=== PATIENT | female | born 1950 | race Caucasian/White ===

== ENCOUNTER 2023-11-30 11:13 | Outpatient (CLI) | payer MEDICARE, SELFPAY ==
[2023-11-30 11:56] LABS: Hematocrit 45.7 % (37.0-47.0); Hemoglobin 15.1 g/dL (12.0-15.0); Mean Corpuscular Hemoglobin 30.1 pg (26-34); Mean Platelet Volume 9.6 fl (7.4-10.4); Platelet Count Result 245 k/mm3 (150-375); Red Blood Count 5.02 M/mm3 (4.2-5.4); Red Cell Distribution Width 13.1 % (11.5-14.5); White Blood Count 6.2 K/mm3 (4.5-10.0)
[2023-11-30 12:07] LABS: INR 0.9; Prothrombin Time 12.5 Seconds (11.1-14.7)
[2023-11-30 12:08] LABS: Alanine Aminotransferase 52 U/L (6-35); Albumin Level 4.7 g/dL (3.5-5.1); Alkaline Phosphatase 90 U/L (38-126); Anion Gap 6 mmol/L (4-12); Aspartate Amino Transferase 49 U/L (14-36); Bilirubin Indirect 2.6 mg/dL (0-1.1); Blood Urea Nitrogen 15 mg/dL (7-17); Carbon Dioxide 25 mmol/L (22-30); Chloride 107 mmol/L (98-107); Estimated Glomerular Filt Rate > 60; Glucose 92 mg/dL (65-110); Sodium 138 mmol/L (137-145)
[2023-11-30 12:31] LABS: Iron 80 ug/dL (37-170)
[2023-11-30 12:40] LABS: Percent Iron Saturation 21 % (20-50)
[2023-12-01 14:32] LABS: Alpha-1-Antitrypsin, QN 152 mg/dL (83-199); Ceruloplasmin 26 mg/dL (14-48)
[2023-12-05 07:48] LABS: Alpha Fetoprotein Tumor Marker 3.9 ng/mL
[2023-12-05 12:53] LABS: Anti Nuclear Antibody Titer 1:40 titer
[2023-12-06 13:03] LABS: Actin Antibody (IgG) <20 U (<20); LKM 1 Antibody <=20.0 U (<=20.0)
[2023-12-13 08:39] LABS: Mitochondrial (M2) Ab (IgG) <20.0 U
[2023-12-20 12:23] LABS: ALT 36 U/L (6-29); Alpha-2-Macroglobulin 267 mg/dL (106-279); Apolipoprotein A1 256 mg/dL (101-198); GGT 21 U/L (3-65); Haptoglobin 81 mg/dL (43-212); Total Bilirubin 2.1 mg/dL (0.2-1.2)
== END 2023-11-30 11:14 | disposition home or self-care (01) ==
LOC: ANHLAB 11:20
PROVIDERS: PCP Internal Medicine; Visit Provider Nurse Practitioner
DX: R74.8 Abnormal levels of other serum enzymes (principal); E80.6 Other disorders of bilirubin metabolism; K74.60 Unspecified cirrhosis of liver; K76.0 Fatty (change of) liver, not elsewhere classified
CPT/HCPCS: 36415; 80053; 81596; 82103; 82105; 82248; 82390; 82728; 83520; 83540; 83550; 85027; 85610; 86038; 86039; 86364; 86376

== ENCOUNTER 2024-02-20 09:58 | Outpatient (CLI) | payer MEDICARE, SELFPAY ==
--- NOTE | 2024-02-20 11:30 | NEURO_ITS ---
Impression: # Non-diabetic, arthritic but no Rheumatoid, complains of pain and numbness of hand. # Right Carpal Tunnel Syndrome. # No ulnar neuropathy. # Normal needle/EMG exam. # Clinical correlation recommended. Nerve Conduction Studies Anti Sensory Summary Table Stim Site NR Peak (ms) P-T Amp (?V) Site1 Site2 Delta-P (ms) Dist (cm) Skyler (m/s) Right Median Anti Sensory (2-3nd Digit) Wrist 4.5 46.0 Wrist 2-3nd Digit 4.5 14.0 31 Wrist 4.6 17.6 Wrist 2-3nd Digit 4.5 14.0 31 Right Radial Anti Sensory (Base 1st Digit) Wrist 2.2 24.8 Wrist Base 1st Digit 2.2 0.0 Right Ulnar Anti Sensory (5th Digit) Wrist 2.3 15.2 Wrist 5th Digit 2.3 14.0 61 Motor Summary Table Stim Site NR Onset (ms) O-P Amp (mV) Site1 Site2 Delta-0 (ms) Dist (cm) Skyler (m/s) Right Median Motor (Abd Poll Brev) Wrist 3.4 2.3 Elbow Wrist 5.2 26.0 50 Elbow 8.6 2.2 Right Ulnar Motor (Abd Dig Minimi) Wrist 2.2 5.6 A Elbow Wrist 4.9 28.0 57 A Elbow 7.1 4.2 F Wave Studies NR F-Lat (ms) L-R F-Lat (ms) Right Median (Mrkrs) (Abd Poll Brev) 29.07 Right Ulnar (Mrkrs) (Abd Dig Min) 28.20 EMG Side Muscle Nerve Root Ins Act Fibs Amp Dur Recrt Comment Right 1stDorInt Ulnar C8-T1 Nml Nml Nml Nml Nml Right Ext Indicis Radial (Post Int) C7-8 Nml Nml Nml Nml Nml Right Ext Digitorum Radial (Post Int) C7-8 Nml Nml Nml Nml Nml Right BrachioRad Radial C5-6 Nml Nml Nml Nml Nml Right PronatorTeres Median C6-7 Nml Nml Nml Nml Nml Right Abd Poll Brev Median C8-T1 Nml Nml Nml Nml Nml Right ABD Dig Min Ulnar C8-T1 Nml Nml Nml Nml Nml Right Biceps Musculocut C5-6 Nml Nml Nml Nml Nml Right Triceps Radial C6-7-8 Nml Nml Nml Nml Nml Right Deltoid Axillary C5-6 Nml Nml Nml Nml Nml MTDD
== END 2024-02-20 09:59 | disposition home or self-care (01) ==
LOC: ANHNEURO 10:00
PROVIDERS: PCP Internal Medicine; Visit Provider Internal Medicine
DX: G56.01 Carpal tunnel syndrome, right upper limb (principal)
CPT/HCPCS: 95886; 95909

== ENCOUNTER 2024-05-28 11:17 | Outpatient (CLI) | payer MEDICARE, SELFPAY ==
[2024-05-28 11:42] LABS: Hematocrit 44.4 % (37.0-47.0); Mean Corpuscular HGB Conc 33.8 g/dl (32-36); Mean Corpuscular Hemoglobin 31.1 pg (26-34); Mean Corpuscular Volume 92.1 fl (80-100); Platelet Count Result 271 k/mm3 (150-375); Red Blood Count 4.82 M/mm3 (4.2-5.4); Red Cell Distribution Width 13.2 % (11.5-14.5); White Blood Count 5.6 K/mm3 (4.5-10.0)
[2024-05-28 11:57] LABS: Alanine Aminotransferase 48 U/L (6-35); Albumin Level 4.3 g/dL (3.5-5.1); Alkaline Phosphatase 80 U/L (38-126); Anion Gap 3 mmol/L (4-12); Aspartate Amino Transferase 51 U/L (14-36); Bilirubin Indirect 2.8 mg/dL (0-1.1); Bilirubin,Total 3.1 mg/dL (0.2-1.3); Blood Urea Nitrogen 13 mg/dL (7-17); Calcium 9.3 mg/dL (8.4-10.2); Carbon Dioxide 27 mmol/L (22-30); Chloride 106 mmol/L (98-107); Estimated Glomerular Filt Rate > 60; Glucose 91 mg/dL (65-110); Potassium 4.6 mmol/L (3.4-5.0); Sodium 136 mmol/L (137-145)
== END 2024-05-28 11:18 | disposition home or self-care (01) ==
PROVIDERS: PCP Internal Medicine; Visit Provider Nurse Practitioner
DX: R74.8 Abnormal levels of other serum enzymes (principal); E80.6 Other disorders of bilirubin metabolism
CPT/HCPCS: 36415; 80048; 80076; 85027

== ENCOUNTER 2024-11-28 07:48 | Day surgery (SDC) | payer MEDICARE, SELFPAY ==
--- NOTE | 2024-11-28 06:53 | P.HP_ITS ---
History of Present Illness History of Present Illness Chief complaint: Right Carpal Tunnel Syndrome Narrative: Patient seen and examined in pre-operative holding area. No interval change in medical history or symptoms. Patient recalls previous discussion of benefits and alternatives to procedure. Continues to desire to proceed with right endoscopic possible open carpal tunnel release . Reviewed procedure, post-op expectations and risks including but not limited to bleeding, infection, injury to tendon/ner ve/vessel, decreased hand function, stiffness, RSD, no change or worsening of symptoms. I discussed the possible use of assistants and their participation in the case. Patient stated understanding and signed the consent form wishing to proceed. Review of Systems Review of Systems: All systems reviewed & are unremarkable except as noted in HPI and below PMFSH Past Medical History Medical History (Updated 11/28/24 @ 08:43 by Grzegorz Monreal MD) Overweight (BMI 25.0-29.9) HLD (hyperlipidemia) Social History Social History Smoking status: Never smoker Second hand tobacco smoke exposure: No Alcohol intake: current Substance use: never Substance use type: does not use Meds Home Medications and Allergies Home Medications Medication Instructions Recorded Confirmed Type aspirin 81 mg tablet,delayed 81 mg PO DAILY 11/30/23 11/28/24 History release (Adult Low Dose Aspirin) atorvastatin 80 mg tablet 80 mg PO DAILY 11/30/23 11/28/24 History ezetimibe 10 mg-rosuvastatin 10 mg 1 tablet PO DAILY 11/30/23 11/28/24 History tablet glucosamine-chondroitin 250 mg-200 2 tablet PO ONCE 11/30/23 11/28/24 History mg tablet (Osteo Bi-Flex) multivitamin (Daily Multi-Vitamin 1 tablet PO DAILY 11/30/23 11/28/24 History tablet) omega 2-xqj-xkk-fish oil 60 mg-90 1 cap PO DAILY 11/30/23 11/28/24 History mg-500 mg capsule (Fish Oil) tramadol 50 mg tablet 50 mg PO Q6H PRN pain #12 tabs 11/28/24 Rx Allergies Allergy/AdvReac Type Severity Reaction Status Date / Time No Known Allergies Allergy Unknown Verified 11/28/24 08:16 Exam Narrative: unchanged Assessment and Plan Assessment and plan (1) Carpal tunnel syndrome of right wrist: Code(s): G56.01 - Carpal tunnel syndrome, right upper limb Status: Acute Assessment and Plan: cont as above
--- NOTE | 2024-11-28 06:54 | W.PM.PROC2 ---
Procedure Note - Detailed Date of Procedure 11/28/24 Pre-op Diagnosis Right Carpal Tunnel Syndrome Post-op Diagnosis Same Procedure Performed right ectr Surgeon Erik Dean MD Section Crews Activities Clerk deidre boykin pa-c Anesthesia MAC Description of Procedure INFORMED CONSENT: The patient was seen and examined and marked in the pre-op area. The patient signed the consent form. PROCEDURE IN DETAIL:The patient taken back to OR on the stretcher in supine position. Time out performed with anesthesia, surgeon and staff agreeing on patient's name site and surgery to be performed SCDs were placed on the lower extremities and inflated. A tourniquet was placed on {right} upper extremity and antibiotics given IV After anesthesia administered sedation I injected {5}cc 1%lido with epi and 0.5% marcaine plain at the operative site The {right upper extremity} was prepped and draped in sterile fashion the {right upper extremity} was exsanguinated with Esmarch bandage and tourniquet inflated to 250mmHg I made a transverse incision in the {right} volar distal wrist crease through skin and dermis with 15 blade scalpel. Littler scissors spread down to antebrachial fascia. A small incision was made in antebrachial fascia allowing access to Carpal tunnel. I proceeded with sequential dilation staying in line with the ring finger and hugging the hook of the hamate. I then used the synovial elevator to free any adhesions from the underside of the transverse carpal ligament. Next I was able to insert the Microaire endoscopic carpal tunnel device with direct visualization of the transverse fibers on the monitor and proceeded with complete segmental retrograde release of the ligament in its entirety. I irrigated with normal saline and closed with 4-0 monocryl for dermis and subcuticular closure. A dressing of Dermabond, 4x4, clark, and a volar splint was applied for patient safety, security, and comfort and secured with an carmina bandage after the tourniquet was let down noting the hand was warm and well perfused. The patient was then awaken from anesthesia and transferred to the recovery room in stable condition. Complications - none EBL- 0cc Disposition - home in stable condition deidre boykin pa-c was essential for positioning, retraction, closure and dressing placement [facility] Billing Surgery - Charge Forward: Surgery Billing ([id number] same for deidre adding )
--- OUTSIDE RECORDS SUMMARY | 2024-11-28 08:05 | XMS_ITS | Data Portability ---
Author Organization [facility] [place] Address [address] [place] [address] Assessment Encounter Date Assessment Date Assessment LastModified by Organization Details LastModified Time 03/11/2020 03/11/2020 Annual gynecological exam performed. Patient will come back in a year unless there are new symptoms. [email or web address] Not available 03/11/2020 09:41:44 Plan of Treatment Reminders Order Date Submit Date Provider Last Modified By Organization Details Last Modified Time Details Appointments None record ed. Lab None record ed. Referral None record ed. Procedures None record ed. Surgeries None record ed. Imaging None record ed. Medication Orders None record ed. Patient TargetsNo targets recorded. Patient Instructions Encounter Date Encounter Id Patient Instructions Last Modified By Organization Details Last Modified Time 03/11/2020 [id number] [email or web address] Not available 10:05:02 Reason for Referral None Reported. Results Created Date Observation Date Name Description Value Unit Range Abnormal Flag Note LastModifiedBy Organization Detail LastModifiedTime 03/24/2003/24/2020 MAMMO , scree darell, bilat eral No observ ation record ed. [facility] (Imaging) [address] [place], [address], 04/01/2020 10:30:23 03/30/20 20 03/24/2020 MAMMO , scree darell, bilat eral No observ ation record ed. [facility] [address] [place], [address], 04/01/2020 10:29:48 Result Notes None recorded. Problems Name Problem SNOMED Code Status Onset Date Resolution Date Notes Provider Name and Address Organization Details Recorded Time Atypical squamous cells of undetermi shabbir significa nce on cervical Papanicol aou smear 593154624 Active 2012 Papanicola ou smear of cervix with atypical squamous cells of undetermin ed significan ce (ASC-US);R ecorded Elsewhere: No Locatio n: [facility] rce: EHR Chroni c: N Practice ID: 0001 Billa ble Time: 10:00:00 AM Not Available [facility] 0 21:46:18 Screening for malignant neoplasm of cervix Active 2011 Screening for malignant neoplasms of the cervix;Rec orded Elsewhere: No Locatio n: [facility] rce: EHR Chroni c: N Practice ID: 0001 Billa ble Time: 03:00:00 PM Not Available [facility] 0 21:46:18 Screening for malignant neoplasm of rectum Active 2016 Encounter for screening for malignant neoplasm of rectum;Pra ctice ID: 0001 Not Available [facility] 0 21:46:[address] Concept Active 2016 Encntr for director of safety and security exam (general) (routine) w/o abn findings;P ractice ID: 0001 Not Available [facility] 0 21:46:[address] Concept Active 2016 Encntr for general adult medical exam w/o abnormal findings;P ractice ID: 0001 Not Available [facility] 0 21:46:18 Adult health examinati on Active 2014 Routine general medical examinatio n at a health care facility;P ractice ID: 0001 Not Available [facility] 0 21:46:18 Specializ ed medical examinati on Active 2013 Routine gynecologi ivett examinatio n;Practice ID: 0001 Not Available [facility] 0 21:46:19 Microscop ic hematuria 465845008 Active 2012 MICROSCOPI C HEMATURIA; Recorded Elsewhere: No Locatio n: [facility] rce: EHR Chroni c: N Practice ID: 0001 Billa ble Time: 10:00:00 AM Not Available [facility] 0 21:46:19 Menopausa l symptom 27271277 Active 2014 Menopausal symptoms;R ecorded Elsewhere: No Locatio n: [facility] rce: EHR Chroni c: N Practice ID: 0001 Billa ble Time: 08:15:00 AM Not [facility] 0 21:46:19 Menopause present 027028769 Active 2016 Symptoms such as flushing, sleeplessn ess, headache, lack of concentrat ion, associated with natural (age-relat ed) menopause; Recorded Elsewhere: No Locatio n: [facility] rce: EHR Chroni c: N Practice ID: 0001 Billa ble Time: 08:30:00 AM Not Available [facility] 0 21:46:19 Problem Notes None recorded. Procedures Surgical History Date Name Laterality Status Provider Name and Address Organization Details Recorded Time procedure on knee completed [facility] 03/11/2020 09:44:20 procedure on back completed [facility] 03/11/2020 09:44:29 procedure on foot completed [facility] 03/11/2020 09:44:35 Imaging Results Imaging Date Name Status LastModified by Organiz ation Details LastModified Time 03/24/2020 MAMMO, screening, bilateral completed [facility] (Imaging) [address] [place], [address], 04/01/2020 10:30:23 03/24/2020 MAMMO, screening, bilateral completed [facility] [address] [place], [address], 04/01/2020 10:29:48 Procedure Notes None recorded. Medical Equipment None Reported. Allergies No known drug allergies Medications Name Sig Start Date Stop Date Status Note LastModified by Organization Details LastModified Time atorvasta tin 80 mg tablet 03/11 completed Not Available Not Available Not Available hydrocodo ne 5 mg-acetam inophen 325 mg tablet 03/11 completed Not Available Not Available Not Available lorazepam 0.5 mg tablet active Not Available Not Available Not Available Lipitor 40 mg tablet take 1 tablet by oral route every day active Prescrib ed Elsewher e: Yes Loca tion: [facility]ify By: rosalind perez DateTime : 03/02/20 17 08:30:00 AM Not Available Not Available Not Available Ativan 2 mg/mL injection solution inject 1 millilit er by intraven ous route 30 minutes before chemothe rapy active Prescrib ed Elsewher e: Yes Loca tion: [facility] By: jim perez DateTime : 09/20/19 12 03:00:00 PM Not Available Not Available Not Available Vitamins and Minerals tablet active Prescrib ed Elsewher e: Yes Loca tion: [facility] By: jim perez DateTime : 09/20/19 12 03:00:00 PM Not Available Not Available Not Available ezetimibe 10 mg tablet take 1 tablet by oral route every day 03/11 completed Not Available Not Available Not Available Crestor 40 mg tablet take 1 tablet by oral route every day 03/02 completed Prescrib ed Elsewher e: Yes Loca tion: [facility] By: rosalind perez DateTime : 09/19/19 12 10:09:24 PM Not Available Not Available Not Available tizanidin e active Not Available Not Available Not Available Lipitor active Not Available Not Avail able Not Available Daily Vitamin Formula active Not Available Not Available Not Available Activella 0.5 mg-0.1 mg tablet take 1 tablet by oral route every day 2016 active Prescrib ed Elsewher e: No Locat ion: [facility] By: gladys tz Encou nter DateTime : 03/02/20 17 08:30:00 AM Not Available Not Available Not Available Fish Oil 360 mg-1,200 mg capsule active Prescrib ed Elsewher e: Yes Loca tion: [facility] By: jim perez DateTime : 09/20/19 12 03:00:00 PM Not Available Not Available Not Available Vitals Date Recorded Body height Body mass index (BMI) Body weight Systolic blood pressure Diastolic blood pressure Provider Name and Address Organization Details Last Updated DateTime 03/11/2020 152.4 cm 31.1 kg/m2 59282.19 g 147 mm[Hg] 82 mm[Hg] Velma Khurram [facility] [place] 0 09:53:19 Social History None recorded. Functional Status None recorded. Mental Status None recorded. Family History Relationship Description Onset Age of this Age Resolved Age Notes LastModified by Organization Details LastModified Time Mother Diabetes mellitus [email or web address] Not available 2019 09:43:20 Brother Diabetes mellitus [email or web address] Not available 2019 09:43:20 Brother Heart disease [email or web address] Not available 2019 09:43:40 Brother Hypertensive disorder [email or web address] Not available 2019 09:43:56 Father Heart disease [email or web address] Not available 2019 09:43:40 Maternal Grandmother Heart disease [email or web address] Not available 2019 09:43:40 Paternal Grandfather Heart disease [email or web address] Not available 2019 09:43:40 Notes:Father: pulmonary embo lism, Congenital heart disease, Coronary artery disease Maternal grandmother: Congenital heart disease Mother: Multiple Lymphoma, Diabetes mellitus, Hypertension Paternal grandfather: Pulmonary embolism Medical History Condition Response Anxiety Disorder Y High Cholesterol Y Gynecological History Statement/Question Response Current Control Method None Obstetrics History GPAL:G 0 P 0 0 0 0 Past Encounters Encounter ID Performer Location Encounter Start Date Encounter Closed Date Diagnosis/Indication Diagnosis SNOMED-CT Code Diagnosis ICD10 Code Diagnosis Note [id number] [address] [address] 03/11/2020 09:30:26 03/11/2020 10:06:55 Gynecologic examination 53940088 Z01.419 Take Calcium with Vitamin D 12-1500mg daily. Do monthly self breast exams. It is advised to get annual flu shot in the fall and she could obtain at [facility] or [facility] clinic. If you haven't received the Tdap vaccine in the last 10 years you should obtain one as well. Have mammogram yearly, bone density every 2-3 years and colonoscop y every 5-10 years depending on findings and history. Engage in daily exercise of low impact aerobic exercise 45-60 minutes 4-5 times weekly. Avoid tobacco and illicit drugs as well as using moderation with alcohol intake less than 1-2 8 oz beverages daily. This lifestyle behavior pattern will lead to less health conditions and longer life span. If BMI greater than 25 weight watchers or dietary consult advised. Questions have been answered. Patient appears to understand instructio ns, but if you have any further questions call or respond to this email Dexa ordered PCP Colonoscop y managed PCP Pap/HPV deferred unless otherwise indicated per asccp guidelines with normal pap/hpv Hx x 50yrs. No issues or concerns today. Health Concerns Section Related Observation LastModified by Organization Detai ls LastModified Time None Recorded Concern Status LastModified by Organization Details LastModified Time None Recorded Advance Directives Directive None Recorded Payers Encounter Date Sequence Insurance Name Policy Number Policy Fuller Covered Member ID Fuller Member ID Guarantor Name 03/11/2020 2 [facility] Nyla Centeno [id number] 03/11/2020 1 [place] Nyla Centeno [id number] Notes Date Note Type Note Provider Name and Address Organization Details Recorded Time 03/11/2020 text/html Annual GYNReport ed bypatient.History: no gynecologic complaints Menstrual cycle:Normal menses Urinary symptoms:No hematuria; No incontinence Vulva:No genital lesion Vagina:Normal vaginal discharge Breast:No breast pain; No breast lump; No nipple discharge Current Contraception:[place] gamous relationship; 50+yrs Sexual complaints:No sexual complaints; No pain during intercourse; Normal libido Menopausal Symptoms:No menopausal symptoms; Normal vaginal lubrication Psychological symptoms:No depression; No anxiety; No PMDD Preventive measures:Encourage self breast examination; Encourage regular exercise; Encourage no tobacco use; Encourage regular mammograms starting age 40; Needs to schedule mammogram; Up to date on colonoscopy screening; Dexa ordered by PCPNotes:Neg Hx of abn pap/hpv readings per patient. Emilee Dolan, NELLIE- [address], [place], [address], [place] [facility] 03/11/2020 10:06:12 OBGyn Episode Ob Episode Information Episode Created Date Number of Fetuses Patient Bloodtype Patient rh Status Prepregnancy Weight lbs Domestic Partner Domestic Partner Phone Father Name Lint Cleaner Status 03/11/20 20 1 CLOSED Fetus Data First Name Last Name Admitted to NICU Weight (g) Sex Living Outcome Pediatric Complications Fetus ID Race Codes Race Delivery Type 4217 Vaginal Delivery Sivakumar Calculation Initial Sivakumar Date Initial Exam Date Initial Exam Provider Initial Ultrasound Date Last Menstrual Period Date Ultra Sound Weeks Gestation 0 Eighteen To Twenty Week Sivakumar Update Ultra Sound Date Fundal Height At Umbil Quickening Date Ultra Sound Latest Weeks Gestation Final Sivakumar Confirmed By Final Sivakumar Confirmed Date Final Sivakumar Date Ultra Sound Latest Days Gestation 0 0 Menstrual History Last Menstrual Date Menses Monthly On Bcp Conception Prior Menses Frequency Hcg Plus Date Menarche Onset Age Delivery Information Delivery Date Delivery Type Labor Anesthesia Weeks Gestation Incision Type Labor Labor Length Hrs Delivered By Post Complications Tubal Sterilization Discharge Date Comments 7 Discharge Information Feeding Method Contraceptive Method Maternal HG B and HCT Levels Ob Episode Information Episode Created Date Number of Fetuses Patient Bloodtype Patient rh Status Prepregnancy Weight lbs Domestic Partner Domestic Partner Phone Father Name Lint Cleaner Status 03/11/20 20 1 CLOSED Fetus Data First Name Last Name Admitted to NICU Weight (g) Sex Living Outcome Pediatric Complications Fetus ID Race Codes Race Delivery Type 4218 Vaginal Delivery Sivakumar Calculation Initial Sivakumar Date Initial Exam Date Initial Exam Provider Initial Ultrasound Date Last Menstrual Period Date Ultra Sound Weeks Gestation 0 Eighteen To Twenty Week Sivakumar Update Ultra Sound Date Fundal Height At Umbil Quickening Date Ultra Sound Latest Weeks Gestation Final Sivakumar Confirmed By Final Sivakumar Confirmed Date Final Sivakumar Date Ultra Sound Latest Days Gestation 0 0 Menstrual History Last Menstrual Date Menses Monthly On Bcp Conception Prior Menses Frequency Hcg Plus Date Menarche Onset Age Delivery Information Delivery Date Delivery Type Labor Anesthesia Weeks Gestation Incision Type Labor Labor Length Hrs Delivered By Post Complications Tubal Sterilization Discharge Date Comments 4 Discharge Information Feeding Method Contraceptive Method Maternal HG B and HCT Levels
--- OUTSIDE RECORDS SUMMARY | 2024-11-28 08:06 | XMS_ITS | Clinical Summary ---
Author Organization [facility] Address [address] [place] [address] Care Team Providers Care Business Strategist Name Role Phone Claire Cedeno EMPLOYMENT TRAINER-CLINIC MANAGER Primary Care Prov ider Unavailable Source Comments [facility],non-owned Affiliates and Associated Physician Practices is amultiple site organization consisting of ambulatory clinics and hospital sitesin [place], [place], [place] and [place]. This disclosure is being madepursuant to the Care Everywhere program and may not contain all information available regarding this patient. Last updated 18.[facility] Allergies No known active allergies Active Problems Problem Noted Date Diagnosed Date Fatty liver 01/10/2024 Overview (01/10/2024): 01/10/24 Fibroscan CAP 224, LSM 6.5 kPa Immunizations Immunization Administration Dates Next Due INFLUENZA VACCINE, HIGH-DOSE , QUADR. (FLUZONE HIGH-DOSE QUADRIVALENT; 65Y+), 0.7 ML (HD-IIV4) 04/05/2019 Social History Tobacco Use Types Packs/Day Years Used Date Smoking Tobacco: Never Assessed Comments Unknown Sex and Gender Information Value Date Recorded Sex Assigned at Not on file Legal Sex Female 10:21 AM CDT Gender Identity Not on file Sexual Orientation Not on file Plan of Treatment Health Maintenance Due Date Last Done Comments BONE DENSITY TESTING 1950 HEPATITIS C SCREENING 09/06/1966 DTAP/TDAP/TD VACCINES (1 - Tdap) 09/11/1967 PNEUMOCOCCAL VACCINE 50+ (1 of 1 - PCV) 1998 ZOSTER VACCINE (1 of 2) 1998 Respiratory Syncytial Virus (RSV) Vaccine Pt: or over 60 yrs (1 - 1-dose 75+ series) 09/11/2023 COVID-19 VACCINE ( - season) 2024 DEPRESSION SCREENING 07/10/2024 MEDICARE AWV CALENDAR YEAR 2024 INFLUENZA VACCINE (Season Ended) 2025 04/05/2019, 04/10/2018, 05/12/2017, Additional history exists HEPATITIS B VACCINE Aged Out No longe r eligible based on patient's age to complete this topic HIB VACCINE Aged Out No longer eligi ble based on patient's age to complete this topic HPV VACCINE Aged Out No longer eligi ble based on patient's age to complete this topic MENINGOCOCCAL (Group B) VACCINE SHARED DECISION-MAKING Aged Out No longer eligible based on patient's age to complete this topic MENINGOCOCCAL GROUPS A/C/Y/W VACCINE Aged Out No longer eligible based on patient's age to complete this topic Insurance [employer] MEDICARE ADV Care Teams Business Strategist Relationship Specialty Start Date End Date Claire Cedeno APRN-P[place]IRA PCP - General Nurse Practitioner 01/10/24
--- OUTSIDE RECORDS SUMMARY | 2024-11-28 08:06 | XMS_ITS | Data Portability ---
Author Organization [place] [facility] [employer], Main Office Address [address] [place] [address] Assessment No assessment recorded. Plan of Treatment Reminders Order Date Submit Date Provider Last Modified By Organization Details Last Modified Time Details Appointments Procedur e 60 2024 07:00A M Nichelle Jorgensen MD Not available Not available Not available Lab lipid panel, serum 2024 025 [facility], [address] [place], [address], 10/03/2024 03:20:07 CMP, serum or plasma 2024 025 [facility], [address] [place], [address], 10/03/2024 03:20:10 CBC w/ auto diff 2024 025 [facility], [address] [place], [address], 10/03/2024 03:20:12 gamma-gl utamyl transfer ase (ggt), serum 2024 025 [facility], [address] [place], [address], 10/03/2024 03:20:09 lipid panel, serum 2023 024 [facility], [address] [place], [address], 07/21/2023 14:27:53 CMP, serum or plasma 2023 024 [facility], [address] [place], [address], 07/21/2023 14:28:08 TSH, serum or plasma 2023 024 [facility], [address] [place], [address], 07/21/2023 14:33:43 T4, free, serum 2023 024 [facility], [address] [place], [address], 07/21/2023 14:31:06 CBC w/ auto diff 2023 024 [facility], [address] [place], [address], 07/21/2023 12:51:53 vitamin D, 25-hydro xy, total, serum [email or web address] [place] [address] Outpatient Lab, [address] [place], [address], 02/02/2023 12:44:19 lipid panel, serum 2022 023 [facility], [address] [place], [address], 01/20/2023 19:08:37 CMP, serum or plasma 2022 023 [facility], [address] [place], [address], 01/20/2023 19:08:43 TSH, serum or plasma 2022 023 [facility], [address] [place], [address], 01/20/2023 19:39:27 T4, free, serum 2022 023 [facility], [address] [place], [address], 01/20/2023 19:22:21 CBC w/ auto diff 2022 023 [facility] - Outpatient Lab, [address] [place], [address], 01/20/2023 19:11:50 Referral None recorded . Procedures colonosc opy screenin g (PROC) 2024 [email or web address] [address] [place], [address], 11/28/2024 07:57:32 Surgeries None recorded . Imaging None recorded . Medication Orders Golytely 236 gram-22. 74 gram-6.7 4 gram-5.8 6 gram oral solution [address] [facility] #[id number], [address], [place], [address], 11/13/2024 14:54:35 Bactrim DS 800 mg-160 mg tablet 2023 024 [email or web address] [facility], [address] [place] [address], [id number], 11/13/2024 14:19:37 Patient TargetsNo targets recorded. Patient Instructions Encounter Date Encounter Id Patient Instructions Last Modified By Organization Details Last Modified Time 01/20/2023 [id number] Follow-up for hyperbilirubinemia-hyp erlipidemia -anxiety all clinically stable. Check blood work consisting of CBC, CMP, lipid, thyroid and vitamin-D level. Continue on current Rx follow-up in six months [email or web address] Not available 01/20/2023 11:28:28 07/21/2023 [id number] dementia rating scale-2* [email or web address] Not available 07/21/2023 11:11:51 alcohol misuse* [email or web address] Not available 07/21/2023 11:11:51 depression screening* [email or web address] Not avai lable 07/21/2023 11:11:51 Timed Up and Go test (TUG)* [email or web address] Not available 07/21/2023 11:11:51 multi-dimensiona l health assessment questionnaire* [email or web address] Not available 07/21/2023 11:11:51 Personalized Hea lt Plan and Screening Recommendations Advance Directives - Do you have one? No Advance Directives - Do we have your advance directive on file in your health record? Primary Prevention/Interventio n (prevents or decreases the chance of common diseases from occurring) Smoking Risk: Non Smoker Alcohol Misuse Screening: Negative Weight: Appropriate Overweight continue your current weight loss efforts try to lose 5% of your body weight try to lose 10% of your body weight Physical activity: Need more exercise/physical activity Nutrition: Good Average Fall Risk (screened today): Low Vaccines Pneumococcal: Ordered Recommended today Recommended today, but you have declined No further needed Influenza: Your next one in the fall of this year Chronic Disease Risks Stroke: Low Risk Intermediate Risk I have no recommendations Active diagnosis, Continue current treatment plan Heart Attack: Low risk Intermediate Risk I have no recommendations Active diagnosis, Continue current treatment plan Clogging of the Arteries: Low risk Intermediate Risk I have no recommendations Active diagnosis, Continue current treatment plan Diabetes: Low Risk I have no recommendations Secondary Prevention/Interventio n (detects treatable diseases before they may cause symptoms, disability, or ) Breast Cancer Screening with mammogram: Cervical/Uterine/Ovari an Cancer Screening: No screening necessary Osteoporosis Screening: Date Screening Last Performed: Colon Cancer Screening: Colonoscopy Date Screening Last Performed: __2013____ Eye Disease Screening: Dementia Risk: Low I have no recommendations Depression Screening: Negative [email or web address] Not available 07/21/2023 10:56:04 [facility] assessment stable. Follow-up for hyperbilirubinemia -hyperlipidemia-anxiet y disorder. Continue on current Rx check blood work consisting of CBC, CMP, lipid and thyroid. Continue on current Rx follow-up in six months. Standard immunizations of RSV, COVID, influenza and shingles as recommended. Portions of the record may have been created with voice recognition software. Occasional wrong-word or s ound-a-like substitutions may have occurred due to the inherent limitations of voice recognition software. Read the chart carefully and recognize, using context, where substitutions have occurred. [email or web address] Not available 07/21/2023 11:11:24 01/09/2024 [id number] Follow-up for th e axillary adenopathy, carpal tunnel syndrome on the right, hyperbilirubinemia as well as hyperlipidemia. Will set up for nerve conduction sound study involving the right hand. Place on some Bactrim DS one b.i.d. For 10 days. If no improvement in the axillary changes may need to see a surgeon for surgical drainage or removal. Follow-up in six months Additional Orders and/or Directives: 1. nerve conduction study of the right hand for carpal tunnel syndrome Next Appointment: 6 Months Approximate Date: 07/07/2024 Portions of the record may have been created with voice recognition software. Occasional wrong-word or s ound-a-like substitutions may have occurred due to the inherent limitations of voice recognition software. Read the chart carefully and recognize, using context, where substitutions have occurred. [email or web address] Not available 01/09/2024 11:27:44 09/26/2024 [id number] Follow-up abnorm al liver enzymes hyperlipidemia,Gilbert 's syndrome anxiety disorder all clinically stable. Will check a CBC CMP and GGTP. Will also check a lipid panel. Continue on current Rx and follow-up in six months Additional Orders - Directives - Recommendations 1. bone density scan 2. Colonoscopy Follow Up: 6 Months Approximate Date: 03/25/2025 Portions of record are template driven. When necessary additional context will be provided. Additionally some portions have been created with voice recognition software. Occasional wrong-word or s ound-a-like substitutions may have occurred due to the inherent limitations of voice recognition software. Read the chart carefully and recognize, using context, where substitutions may have occurred. Created: Guilherme Marinelli M.D. 09.26.2024 09:58 AM [email or web address] Not available 09/26/2024 10:58:53 11/13/2024 [id number] NIKKI [email or web address] Not available 01/2025 14:19:34 PT NEEDS A SCREE NANO COLON . R/O POLYP . RECOMMEND A COLONOSOPY . Risks benefits and complications were explained to the pt. ( BLEEDING PERFORATION , INFECTION , ). PT VERBALIZES UNDERSTANDING AND IS WILLING TO PROCEDE . [email or web address] Not available 11/13/2024 14:19:43 Reason for Referral None Reported. Results Created Date Observation Date Name Description Value Unit Range Abnormal Flag Note LastModifiedBy Organization Detail LastModifiedTime 01/21/2001/20/2023 LIPID PANEL cholesterol 194 mg/dL 140-19 9 [facility] SAGE NSUS RECOM MENDA TION FOR JIGNESH STERO L: ADULT CHILD LOW RISK: <200 <170 BORDE RLINE : <200- 239 ----- HIGH RISK: >240 >200 Not Available [facility] (Lab) [address] [place], [address], 01/20/2023 19:08:37 01/21/20 23 01/20/2023 LIPID PANEL triglyceride s 65 mg/dL 0-150 NIH SAGE NSUS REPOR T RECOM MENDA TION FOR TRIGL YCERI JACQUELINE: ADULT CHILD LOW RISK: <150 ----- BODER LINE: 150-1 99 ----- HIGH RISK: >200 ----- Not Available [facility] (Lab) [address] [place], [address], 01/20/2023 19:08:37 01/21/20 23 01/20/2023 LIPID PANEL HDL cholesterol 96 mg/dL 40- Not Available [facility] (Lab) [address] [place], [address], 01/20/2023 19:08:37 01/21/20 23 01/20/2023 LIPID PANEL LDL cholesterol, calculated 85 mg/dL 0-130 [facility] SAGE NSUS REPOR T RECOM MENDA TIONS FOR LDL: ADULT CHILD LOW RISK <130 <110 (OPTI MAL LDL) <100 ----- BORDE RLINE : 130-1 59 ----- HIGH RISK: >160 >130 A TRIGL YCERI DE RESUL T >400 INVAL IDATE S THE CALCU LATIO N FOR LDL FRACT IONAT ION - THE LDL RESUL T WILL NOT BE REPOR NORMAN. Not Available [facility] (Lab) [address] [place], [address], 01/20/2023 19:08:37 01/21/20 23 01/20/2023 COMPR EHENS DOMI METAB OLIC PANEL sodium 138 mmol/ L 137-14 5 Not Available [facility] (Lab) [address] [place], [address], 01/20/2023 19:08:43 01/21/20 23 01/20/2023 COMPR EHENS DOMI METAB OLIC PANEL potassium 4.4 mmol/ L 3.5-5. 1 Not Available [facility] (Lab) [address] [facility] [place], [address], 01/20/2023 19:08:43 01/21/20 23 01/20/2023 COMPR EHENS DOMI METAB OLIC PANEL chloride 106 mmol/ L 98-107 Not Available [facility] (Lab) [address] [place], [address], 01/20/2023 19:08:43 01/21/20 23 01/20/2023 COMPR EHENS DOMI METAB OLIC PANEL carbon dioxide 25 mmol/ L 22-30 Not Available [facility] (Lab) [address] [place], [address], 01/20/2023 19:08:43 01/21/20 23 01/20/2023 COMPR EHENS DOMI METAB OLIC PANEL anion gap 11.4 mmol/ L 14-22 low Not Available [facility] (Lab) [address] [place], [address], 01/20/2023 19:08:43 01/21/20 23 01/20/2023 COMPR EHENS DOMI METAB OLIC PANEL glucose 86 mg/dL 70-99 Not Available [facility] (Lab) [address] [place], [address], 01/20/2023 19:08:43 01/21/20 23 01/20/2023 COMPR EHENS DOMI METAB OLIC PANEL BUN 14 mg/dL 8-19 Not Available [facility] (Lab) [address] [place], [address], 01/20/2023 19:08:43 01/21/20 23 01/20/2023 COMPR EHENS DOMI METAB OLIC PANEL creatinine 0.53 mg/dL 0.66-1 .25 low Not Available [facility] (Lab) [address] [place], [address], 01/20/2023 19:08:43 01/21/20 23 01/20/2023 COMPR EHENS DOMI METAB OLIC PANEL GFR >60 Refer ence Range : [place] GFR Healt hy Adult : >60 mL/mi n/1.7 3 m2 Chron ic Kidne y Disea se: 15-60 mL/mi n/1.7 3 m2 Kidne y Failu re: <15/m L/min /1.73 m2 www.n iddk. nih.g ov The MDRD study equat ion has not been valid ated in child salazar <18 years of age; pregn ant women ; the elder ly >85 years of age; or in some racia l or ethni c subgr oups, such as Hispa nics. Outsi de the valid ated anthony eters , estim ated GFR is less accur ate, requi ring clini ivett judgm ent on a case- by-ca se basis . Clini ivett inter preta tion for other races and ages must be made by the clini carolyn. The MDRD study equat ion has not been valid ated for the evalu ation of serum creat inine relat ed to nutri luis l statu s or medic ation usage . For perso ns <18 years of age, a pedia tric GFR calcu lator is avail able on the F websi te: https ://tierney w.keith racos.o rg/pr ofess ional s/kdo qi/gf r_cal culat or Not Available [facility] (Lab) [address] [place], [address], 01/20/2023 19:08:43 01/21/20 23 01/20/2023 COMPR EHENS DOMI METAB OLIC PANEL alkaline phosphatase 78 U/L 38-126 Not Available [facility] (Lab) [address] [place], [address], 01/20/2023 19:08:43 01/21/20 23 01/20/2023 COMPR EHENS DOMI METAB OLIC PANEL alanine aminotransfe rase 73 U/L 0-35 high Not Available [facility] (Lab) [address] [facility] [place], [address], 01/20/2023 19:08:43 01/21/20 23 01/20/2023 COMPR EHENS DOMI METAB OLIC PANEL aspartate aminotransfe rase 59 U/L 15-37 high Not Available [facility] (Lab) [address] [place], [address], 01/20/2023 19:08:43 01/21/20 23 01/20/2023 COMPR EHENS DOMI METAB OLIC PANEL bilirubin, total 3.70 mg/dL 0.20-1 .30 high Not Available [facility] (Lab) [address] [place], [address], 01/20/2023 19:08:43 01/21/20 23 01/20/2023 COMPR EHENS DOMI METAB OLIC PANEL calcium 9.5 mg/dL 8.4-10 .2 Not Available [facility] (Lab) [address] [place], [address], 01/20/2023 19:08:43 01/21/20 23 01/20/2023 COMPR EHENS DOMI METAB OLIC PANEL total protein 7.0 g/dL 6.3-8. 2 Not Available [facility] (Lab) [address] [place], [address], 01/20/2023 19:08:43 01/21/20 23 01/20/2023 COMPR EHENS DOMI METAB OLIC PANEL albumin 4.3 g/dL 3.0-4. 4 Not Available [facility] (Lab) [address] [place], [address], 01/20/2023 19:08:43 01/21/20 23 01/20/2023 COMPR EHENS DOMI METAB OLIC PANEL globulin 2.7 g/dL 2.6-4. 2 Not Available [facility] (Lab) [address] [place], [address], 01/20/2023 19:08:43 01/21/20 23 01/20/2023 COMPR EHENS DOMI METAB OLIC PANEL A/G ratio 1.6 ratio 1.0-2. 0 Not Available [facility] (Lab) [address] [place], [address], 01/20/2023 19:08:43 01/21/20 23 01/20/2023 CBC/C OMPLE TE BLD COUNT W/DIF F white blood cells 5.3 x10'3 /uL 4.2-10 .8 Not Available [facility] (Lab) [address] [place], [address], 01/20/2023 19:11:50 01/21/20 23 01/20/2023 CBC/C OMPLE TE BLD COUNT W/DIF F red blood cells 4.83 x10'6 /uL 3.80-5 .20 Not Available [facility] (Lab) [address] [place], [address], 01/20/2023 19:11:50 01/21/20 23 01/20/2023 CBC/C OMPLE TE BLD COUNT W/DIF F hemoglobin 15.1 g/dL 12.0-1 5.6 Not Available [facility] (Lab) [address] [place], [address], 01/20/2023 19:11:50 01/21/20 23 01/20/2023 CBC/C OMPLE TE BLD COUNT W/DIF F hematocrit 45.3 % 35.7-4 5.7 Not Available [facility] (Lab) [address] [place], [address], 01/20/2023 19:11:50 01/21/20 23 01/20/2023 CBC/C OMPLE TE BLD COUNT W/DIF F mean red cell volume 93.8 fL 82.0-9 9.0 Not Available [facility] (Lab) [address] [place], [address], 01/20/2023 19:11:50 01/21/20 23 01/20/2023 CBC/C OMPLE TE BLD COUNT W/DIF F mean red cell hemoglobin 31.3 pg 27.0-3 3.0 Not Available [facility] (Lab) [address] [place], [address], 01/20/2023 19:11:50 01/21/20 23 01/20/2023 CBC/C OMPLE TE BLD COUNT W/DIF F mean RBC HGB concentratio n 33.3 g/dL 31.0-3 6.0 Not Available [facility] (Lab) [address] [place], [address], 01/20/2023 19:11:50 01/21/20 23 01/20/2023 CBC/C OMPLE TE BLD COUNT W/DIF F red cell distribution width 13.1 % 11.8-1 5.5 Not Available [facility] (Lab) [address] [place], [address], 01/20/2023 19:11:50 01/21/20 23 01/20/2023 CBC/C OMPLE TE BLD COUNT W/DIF F platelets 289 x10'3 /uL 150-40 0 Not Available [facility] (Lab) [address] [place], [address], 01/20/2023 19:11:50 01/21/20 23 01/20/2023 CBC/C OMPLE TE BLD COUNT W/DIF F mean platelet volume 10.2 fL 9.0-12 .4 Not Available [facility] (Lab) [address] [place], [address], 01/20/2023 19:11:50 01/21/20 23 01/20/2023 CBC/C OMPLE TE BLD COUNT W/DIF F neutrophils 44.1 % 39.0-7 2.0 Not Available [facility] (Lab) [address] [place], [address], 01/20/2023 19:11:50 01/21/20 23 01/20/2023 CBC/C OMPLE TE BLD COUNT W/DIF F lymphocytes 44.2 % 16.0-4 7.0 Not Available [facility] (Lab) [address] [place], [address], 01/20/2023 19:11:50 01/21/20 23 01/20/2023 CBC/C OMPLE TE BLD COUNT W/DIF F monocytes 8.3 % 5.0-12 .0 Not Available [facility] (Lab) [address] [place], [address], 01/20/2023 19:11:50 01/21/20 23 01/20/2023 CBC/C OMPLE TE BLD COUNT W/DIF F eosinophils 2.6 % 1.0-7. 0 Not Available [facility] (Lab) [address] [place], [address], 01/20/2023 19:11:50 01/21/20 23 01/20/2023 CBC/C OMPLE TE BLD COUNT W/DIF F basophils 0.6 % 0.0-2. 0 Not Available [facility] (Lab) [address] [place], [address], 01/20/2023 19:11:50 01/21/20 23 01/20/2023 CBC/C OMPLE TE BLD COUNT W/DIF F immature granulocytes 0.2 % 0.00-0 .50 Not Available [facility] (Lab) [address] [facility] [place], [address], 01/20/2023 19:11:50 01/21/20 23 01/20/2023 CBC/C OMPLE TE BLD COUNT W/DIF F neutrophils, absolute count 2.33 x10'3 /uL 1.5-8. 0 Not Available [facility] (Lab) [address] [place], [address], 01/20/2023 19:11:50 01/21/2001/20/2023 CBC/C OMPLE TE BLD COUNT W/DIF F lymphocytes, absolute count 2.34 x10'3 /uL 1.07-3 .43 Not Available [facility] (Lab) [address] [place], [address], 01/20/2023 19:11:50 01/21/20 23 01/20/2023 CBC/C OMPLE TE BLD COUNT W/DIF F monocytes, absolute count 0.44 x10'3 /uL 0.29-0 .99 Not Available [facility] (Lab) [address] [place], [address], 01/20/2023 19:11:50 01/21/2001/20/2023 CBC/C OMPLE TE BLD COUNT W/DIF F eosinophils, absolute count 0.14 x10'3 /uL 0.02-0 .53 Not Available [facility] (Lab) [address] [place], [address], 01/20/2023 19:11:50 01/21/2001/20/2023 CBC/C OMPLE TE BLD COUNT W/DIF F basophils, absolute count 0.03 x10'3 /uL 0.01-0 .08 Not Available [facility] (Lab) [address] [place], [address], 01/20/2023 19:11:50 01/21/20 23 01/20/2023 CBC/C OMPLE TE BLD COUNT W/DIF F immature granulocytes ,absolute 0.01 x10'3 /uL 0.00-0 .05 Not Available [facility] (Lab) [address] [place], [address], 01/20/2023 19:11:50 01/21/20 23 01/20/2023 CBC/C OMPLE TE BLD COUNT W/DIF F nucleated red blood cells 0.0 % -0 Not Available [facility] (Lab) [address] [place], [address], 01/20/2023 19:11:50 01/21/20 23 01/20/2023 CBC/C OMPLE TE BLD COUNT W/DIF F NRBC# 0.00 x10'3 /uL Not Available [facility] (Lab) [address] [place], [address], 01/20/2023 19:11:50 01/21/20 23 01/20/2023 VITAM IN D 25-HY DROXY [id number] 44.2 NG/mL 30-100 Vitam in D Statu s: Defic ient: <20 ng/mL Insuf ficie nt: 20-29 ng/mL Suffi cient : 30-10 0 ng/mL Not Available [facility] (Lab) [address] [place], [address], 01/20/2023 19:22:12 01/21/20 23 01/20/2023 T4 FREE free T4 1.39 NG/dL 0.78-2 .19 Not Available [facility] (Lab) [address] [place], [address], 01/20/2023 19:22:21 01/21/20 23 01/20/2023 TSH thyroid-stim ulating hormone 1.780 uIU/m L 0.465- 4.680 Not Available [facility] (Lab) [address] [place], [address], 01/20/2023 19:39:27 07/21/19 24 07/21/2023 CBC/C OMPLE TE BLD COUNT W/DIF F white blood cells 5.2 x10'3 /uL 4.2-10 .8 Not Available [facility] (Lab) [address] [place], [address], 07/21/2023 12:51:53 07/21/19 24 07/21/2023 CBC/C OMPLE TE BLD COUNT W/DIF F red blood cells 4.87 x10'6 /uL 3.80-5 .20 Not Available [facility] (Lab) [address] [place], [address], 07/21/2023 12:51:53 07/21/19 24 07/21/2023 CBC/C OMPLE TE BLD COUNT W/DIF F hemoglobin 15.1 g/dL 12.0-1 5.6 Not Available [facility] (Lab) [address] [place], [address], 07/21/2023 12:51:53 07/21/19 24 07/21/2023 CBC/C OMPLE TE BLD COUNT W/DIF F hematocrit 45.2 % 35.7-4 5.7 Not Available [facility] (Lab) [address] [place], [address], 07/21/2023 12:51:53 07/21/19 24 07/21/2023 CBC/C OMPLE TE BLD COUNT W/DIF F mean red cell volume 92.8 fL 82.0-9 9.0 Not Available [facility] (Lab) [address] [place], [address], 07/21/2023 12:51:53 07/21/19 24 07/21/2023 CBC/C OMPLE TE BLD COUNT W/DIF F mean red cell hemoglobin 31.0 pg 27.0-3 3.0 Not Available [facility] (Lab) [address] [place], [address], 07/21/2023 12:51:53 07/21/19 24 07/21/2023 CBC/C OMPLE TE BLD COUNT W/DIF F mean RBC HGB concentratio n 33.4 g/dL 31.0-3 6.0 Not Available [facility] (Lab) [address] [facility] [place], [address], 07/21/2023 12:51:53 07/21/19 24 07/21/2023 CBC/C OMPLE TE BLD COUNT W/DIF F red cell distribution width 13.0 % 11.8-1 5.5 Not Available [facility] (Lab) [address] [place], [address], 07/21/2023 12:51:53 07/21/19 24 07/21/2023 CBC/C OMPLE TE BLD COUNT W/DIF F platelets 275 x10'3 /uL 150-40 0 Not Available [facility] (Lab) [address] [place], [address], 07/21/2023 12:51:53 07/21/19 24 07/21/2023 CBC/C OMPLE TE BLD COUNT W/DIF F mean platelet volume 9.8 fL 9.0-12 .4 Not Available [facility] (Lab) [address] [place], [address], 07/21/2023 12:51:53 07/21/19 24 07/21/2023 CBC/C OMPLE TE BLD COUNT W/DIF F neutrophils 51.5 % 39.0-7 2.0 Not Available [facility] (Lab) [address] [place], [address], 07/21/2023 12:51:53 07/21/19 24 07/21/2023 CBC/C OMPLE TE BLD COUNT W/DIF F lymphocytes 35.3 % 16.0-4 7.0 Not Available [facility] (Lab) [address] [place], [address], 07/21/2023 12:51:53 07/21/19 24 07/21/2023 CBC/C OMPLE TE BLD COUNT W/DIF F monocytes 7.6 % 5.0-12 .0 Not Available [facility] (Lab) [address] [place], [address], 07/21/2023 12:51:53 07/21/19 24 07/21/2023 CBC/C OMPLE TE BLD COUNT W/DIF F eosinophils 4.6 % 1.0-7. 0 Not Available [facility] (Lab) [address] [place], [address], 07/21/2023 12:51:53 07/21/19 24 07/21/2023 CBC/C OMPLE TE BLD COUNT W/DIF F basophils 0.8 % 0.0-2. 0 Not Available [facility] (Lab) [address] [place], [address], 07/21/2023 12:51:53 07/21/19 24 07/21/2023 CBC/C OMPLE TE BLD COUNT W/DIF F immature granulocytes 0.2 % 0.00-0 .50 Not Available [facility] (Lab) [address] [place], [address], 07/21/2023 12:51:53 07/21/19 24 07/21/2023 CBC/C OMPLE TE BLD COUNT W/DIF F neutrophils, absolute count 2.70 x10'3 /uL 1.5-8. 0 Not Available [facility] (Lab) [address] [place], [address], 07/21/2023 12:51:53 07/21/19 24 07/21/2023 CBC/C OMPLE TE BLD COUNT W/DIF F lymphocytes, absolute count 1.85 x10'3 /uL 1.07-3 .43 Not Available [facility] (Lab) [address] [place], [address], 07/21/2023 12:51:53 07/21/19 24 07/21/2023 CBC/C OMPLE TE BLD COUNT W/DIF F monocytes, absolute count 0.40 x10'3 /uL 0.29-0 .99 Not Available [facility] (Lab) [address] [place], [address], 07/21/2023 12:51:53 07/21/19 24 07/21/2023 CBC/C OMPLE TE BLD COUNT W/DIF F eosinophils, absolute count 0.24 x10'3 /uL 0.02-0 .53 Not Available [facility] (Lab) [address] [place], [address], 07/21/2023 12:51:53 07/21/19 24 07/21/2023 CBC/C OMPLE TE BLD COUNT W/DIF F basophils, absolute count 0.04 x10'3 /uL 0.01-0 .08 Not Available [facility] (Lab) [address] [place], [address], 07/21/2023 12:51:53 07/21/19 24 07/21/2023 CBC/C OMPLE TE BLD COUNT W/DIF F immature granulocytes ,absolute 0.01 x10'3 /uL 0.00-0 .05 Not Available [facility] (Lab) [address] [place], [address], 07/21/2023 12:51:53 07/21/19 24 07/21/2023 CBC/C OMPLE TE BLD COUNT W/DIF F nucleated red blood cells 0.0 % -0 Not Available [facility] (Lab) [address] [place], [address], 07/21/2023 12:51:53 07/21/19 24 07/21/2023 CBC/C OMPLE TE BLD COUNT W/DIF F NRBC# 0.00 x10'3 /uL Not Available [facility] (Lab) [address] [place], [address], 07/21/2023 12:51:53 07/21/19 24 07/21/2023 LIPID PANEL cholesterol 201 mg/dL 140-19 9 high NIH SAGE NSUS RECOM MENDA TION FOR JIGNESH STERO L: ADULT CHILD LOW RISK: <200 <170 BORDE RLINE : <200- 239 ----- HIGH RISK: >240 >200 Not Available [facility] (Lab) [address] [place], [address], 07/21/2023 14:27:53 07/21/19 24 07/21/2023 LIPID PANEL triglyceride s 55 mg/dL 0-150 NIH SAGE NSUS REPOR T RECOM MENDA TION FOR TRIGL YCERI JACQUELINE: ADULT CHILD LOW RISK: <150 ----- BODER LINE: 150-1 99 ----- HIGH RISK: >200 ----- Not Available [facility] (Lab) [address] [place], [address], 07/21/2023 14:27:53 07/21/19 24 07/21/2023 LIPID PANEL HDL cholesterol 96 mg/dL 40- Not Available [facility] (Lab) [address] [place], [address], 07/21/2023 14:27:53 07/21/19 24 07/21/2023 LIPID PANEL LDL cholesterol, calculated 94 mg/dL 0-130 NIH SAGE NSUS REPOR T RECOM MENDA TIONS FOR LDL: ADULT CHILD LOW RISK <130 <110 (OPTI MAL LDL) <100 ----- BORDE RLINE : 130-1 59 ----- HIGH RISK: >160 >130 A TRIGL YCERI DE RESUL T >400 INVAL IDATE S THE CALCU LATIO N FOR LDL FRACT IONAT ION - THE LDL RESUL T WILL NOT BE REPOR NORMAN. Not Available [facility] (Lab) [address] [place], [address], 07/21/2023 14:27:53 07/21/19 24 07/21/2023 COMPR EHENS DOMI METAB OLIC PANEL sodium 137 mmol/ L 137-14 5 Not Available [facility] (Lab) [address] [place], [address], 07/21/2023 14:28:08 07/21/19 24 07/21/2023 COMPR EHENS DOMI METAB OLIC PANEL potassium 4.4 mmol/ L 3.5-5. 1 Not Available [facility] (Lab) [address] [place], [address], 07/21/2023 14:28:08 07/21/19 24 07/21/2023 COMPR EHENS DOMI METAB OLIC PANEL chloride 106 mmol/ L 98-107 Not Available [facility] (Lab) [address] [place], [address], 07/21/2023 14:28:08 07/21/19 24 07/21/2023 COMPR EHENS DOMI METAB OLIC PANEL carbon dioxide 27 [id number]|2024-11-28 06:53:40|2024-11-28 06:53:40|[id number]||||"History and Physical Update Update Date/Time: 11/28/24 06:53 Patient seen and examined in pre-operative holding area. No interval change in medical history or symptoms. Patient recalls previous discussion of benefits and alternatives to procedure. Continues to desire to proceed with right endoscopic possible open carpal tunnel release . Reviewed procedure, post-op expectations and risks including but not limited to bleeding, infection, injury to tendon/nerve/vessel, decreased hand function, stiffness, RSD, no change or worsening of symptoms. I discussed the possible use of assistants and their participation in the case. Patient stated understanding and signed the consent form wishing to proceed."
--- OUTSIDE RECORDS SUMMARY | 2024-11-28 08:06 | XMS_ITS | CONTINUITY OF CARE DOCUMENT ---
Author Name helga pranavnirmala Address Unknown Organization [facility] Address [address] [facility] [address] [place] [address] Phone [phone] Care Team Providers Care Transportation Lead Name Role Phone Park MCCORMACK, Carlos Manuel Unavailable CHASTITY RAHMAN MD Unavailable CHASTITY RAHMAN MD Unavailable [phone] PROBLEMS Condition Status Date Provider Notes CHEST DISCOMFORT active Carlos Manuel Nick MD CC M Enroll SHORTNESS OF BREATH active ? Carlos Manuel Nick MD HTN BORDERLINE active Carlos Manuel Nick MD CCM Enroll FAMILY HISTORY OF HEART DISEASE active Yusuf Nick MD Dyspnea on exertion active Carlos Manuel Nick MD Cardiology examination active Carlos Manuel Nick MD Hyperlipidemia active Carlos Manuel Nick MD ENCOUNTERS Date Type Provider Location Encounter Diag nosis 6 - 6 In-person encounter Office Visit Carlos Manuel Nick MD [facility] Cardiology examination 1 - 1 In-person encounter Office Visit Carlos Manuel Nick MD [facility] 2 - 3 In-person encounter Office Visit Carlos Manuel Nick MD [facility] 3 - 0 In-person encounter Office Visit Carlos Manuel Nick MD [facility] 4 - 4 In-person encounter Office Visit Carlos Manuel Nick MD [facility] Dyspnea on exertion 5 - 6 In-person encounter Office Visit Carlos Manuel Nick MD [facility] 6 - 2 In-person encounter Office Visit Carlos Manuel Nick MD [facility] Hyperlipidemia 6 - 8 In-person encounter Office Visit Carlos Manuel Nick MD [facility] Hyperlipidemia 8 - 8 In-person encounter Office Visit Carlos Manuel Nick MD [facility] 9 - 2 In-person encounter Office Visit Carlos Manuel Nick MD [facility] 4 - 5 In-person encounter Office Visit Carlos Manuel Nick MD [facility] Office 9 - 1 In-person encounter Office Visit Carlos Manuel Nick MD [facility] CHEST DISCOMFORTHyperlipidemiaSHORTNESS OF BREATHHTN BORDERLINEFAMILY HISTORY OF HEART DISEASE VITAL SIGNS Date Observation Value Provider Body Mass Index (Ratio) 28.07 kg/m2 Yusuf Nick MD blood pressure, diastolic 86 mm[Hg] Taina reevesLogkoko blood pressure, systolic 122 mm[Hg] Shelby Grandaogkoko blood pressure, cuff size regular Harsh henrymatias Hopkins blood pressure, diastolic 86 mm[Hg] Harsh henrymatias Hopkins blood pressure, systolic 122 mm[Hg] Abdon staciemahin Hopkins oxygen saturation, oximetry 96 % Rowenamahin Hopkins pulse rate 68 /min Rowenamahin Hopkins weight E&M 151 [lb_av] Rowenamahin Hopkins respiratory rate E&M 12 /min Rowenamahin Hopkins height E&M 61.5 [in_i] Rowena Hopkins Body Mass Index (Ratio) 26.50 kg/m2 Yusuf Nick MD pulse rate 65 /min Peggy Carreon blood pressure, diastolic 77 mm[Hg] Kiera Carreon blood pressure, systolic 138 mm[Hg] She rry Velma oxygen saturation, oximetry 98 % Peggy Carreon weight E&M 142.6 [lb_av] Peggy Carreon respiratory rate E&M 20 /min Peggy Carreon blood pressure, cuff size regular Kiera Carreon height E&M 61.5 [in_i] Peggy Carreon Body Mass Index (Ratio) 28.62 kg/m2 Yusuf Nick MD blood pressure, diastolic 94 mm[Hg] Taina nkLogkoko blood pressure, systolic 170 mm[Hg] Shelby Grandaogkoko blood pressure, cuff size regular Ke rrpatrick Giordano blood pressure, diastolic 94 mm[Hg] Ke rrpatrick Giordano blood pressure, systolic 170 mm[Hg] Heidi Giordano oxygen saturation, oximetry 98 % Kim Giordano respiratory rate E&M 14 /min Kim stephens pulse rate 66 /min Kim Valenzuela [facility] weight E&M 154 [lb_av] Kim miller height E&M 61.5 [in_i] Kim Valenzuela [facility] Body Mass Index (Ratio) 29.18 kg/m2 Yusuf Nick MD blood pressure, diastolic 74 mm[Hg] Taina reevesLogkoko blood pressure, systolic 127 mm[Hg] Shelby Grandaogkoko blood pressure, diastolic 74 mm[Hg] Rh onda Chelsie blood pressure, systolic 127 mm[Hg] Rho ludin Holguin oxygen saturation, oximetry 98 % April Holguin pulse rate 63 /min April Holguin respiratory rate E&M 18 /min April Holguin weight E&M 157 [lb_av] April Chelsie blood pressure, resting No Rhon chirag Chelsie blood pressure, cuff size regular Rh vinayak Chelsie height E&M 61.5 [in_i] April Chelsie Body Mass Index (Ratio) 30.11 kg/m2 Yusuf Nick MD blood pressure, diastolic 72 mm[Hg] Cy marlon Pk blood pressure, systolic 147 mm[Hg] Radha herson Whittington blood pressure, cuff size regular Cy marlon [place] respiratory rate E&M 16 /min Audelia Whittington pulse rate 73 /min Audelia Campbel l oxygen saturation, oximetry 98 % Audelia Whittington weight E&M 162 [lb_av] Audelia Campbel l height E&M 61.5 [in_i] Audelia Campbel l Body Mass Index (Ratio) 31.04 kg/m2 Yusuf Nick MD blood pressure, diastolic 88 mm[Hg] Da gutierrez Ava blood pressure, systolic 142 mm[Hg] Dac ia Ava oxygen saturation, oximetry 98 % Amanda Ava respiratory rate E&M 16 /min Amanda V oss pulse rate 76 /min Amanda Ava weight E&M 167 [lb_av] Amanda Ava height E&M 61.5 [in_i] Amanda Ava Body Mass Index (Ratio) 31.04 kg/m2 Yusuf Nick MD blood pressure, cuff size regular Star Randall blood pressure, diastolic 70 mm[Hg] Star isty Tonia blood pressure, systolic 142 mm[Hg] Melanie Randall respiratory rate E&M 16 /min Karen Randall oxygen saturation, oximetry 98 % Karen [place] pulse rate 69 /min Karen Ward blood pressure, resting No Johanese tang weight E&M 167 [lb_av] Karen height E&M 61.5 [in_i] Karen Ward Body Mass Index (Ratio) 30.48 kg/m2 Yusuf Nick MD blood pressure, cuff size regular Ke rri Pasquale blood pressure, diastolic 82 mm[Hg] Ke rri Pasquale blood pressure, systolic 173 mm[Hg] Heidi Giordano oxygen saturation, oximetry 95 % Kim Giordano respiratory rate E&M 16 /min Kim stephens pulse rate 72 /min Kim millreer weight E&M 164 [lb_av] Kim Valenzuela er height E&M 61.5 [in_i] Kim Valenzuela er blood pressure, diastolic 74 mm[Hg] Devan Booth blood pressure, systolic 153 mm[Hg] Jayshree Booth pulse rate 60 /min Yuri dailey oxygen saturation, oximetry 97 % Yuri Booth respiratory rate E&M 16 /min Martín Booth Body Mass Index (Ratio) 28.36 kg/m2 Marquita Booth weight E&M 152.6 [lb_av] Yuri scanlon Body Mass Index (Ratio) 30.67 kg/m2 Anea boo Guilherme blood pressure, diastolic 83 mm[Hg] An eatris Guilherme blood pressure, systolic 149 mm[Hg] Ane atris Brown pulse rate 79 /min Aneatris Guilherme oxygen saturation, oximetry 99 % Aneatris Guilherme respiratory rate E&M 17 /min Aneatri aravind Vanegas weight E&M 165 [lb_av] Aneatris Guilherme Body Mass Index (Ratio) 30.22 kg/m2 Anea boo Guilherme blood pressure, diastolic 84 mm[Hg] An gerardo Vanegas blood pressure, systolic 142 mm[Hg] Ane atris Guilherme pulse rate 60 /min Aneatris Guilherme oxygen saturation, oximetry 97 % Aneatris Guilherme respiratory rate E&M 18 /min Aneatri s Guilherme weight E&M 162 [lb_av] Mistyatris [facility] Body Mass Index (Ratio) 30.22 kg/m2 Vega i Pasquale blood pressure, diastolic 90 mm[Hg] Ke rri Pasquale blood pressure, systolic 134 mm[Hg] Heidi Giordano pulse rate 64 /min Kim stover oxygen saturation, oximetry 98 % Kim Giordano respiratory rate E&M 15 /min Kim stephens weight E&M 162 [lb_av] Kim stover height E&M 61.5 [in_i] Kim stover ALLERGIES No Known Drug Allergies RESULTS Date Observation Value Provider Reference Range Interpretation Location lipoprotein, beta, serum, point, quantitative, calculated 132 mg/dL [facility] 0-99 High very low density lipoproteins 24 mg/dL [facility] 5-40 HDL cholesterol, serum 74 mg/dL [facility] >39 triglyceride, serum, random 121 mg/dL [facility] 0-149 cholesterol, serum 230 mg/dL [facility] 100-199 High HISTORY OF MEDICATION USE Medication Status Instructions Dates Provider Indications Com ments Osteo Bi-Flex (5-Loxin) 1,500-400-100 mg-unit-mg tablet active Take 1 tablet by mouth twice a day Kim Giordano Vitamin D3 25 mcg (1,000 unit) tablet active Take 1 tablet by mouth once a day Kim Giordano ezetimibe 10 mg tablet active once a day April Holguin PRALUENT 150 MG/ML SUBCUTANEOUS SOLUTION PEN-INJECTOR completed inject 150mg every 2 weeks - Kina Mcleod REPATHA SURECLICK 140 MG/ML SUBCUTANEOUS SOLUTION AUTO-INJECTOR completed Inject 1 ml (140 mg) once every 2 weeks. - Kina Mcleod Lipitor 80 mg tablet active Take 1 once a day Amanda Ava CHOICE 1/ALIROCUMAB completed - Humberto Calix Fish Oil 300-1,000 mg capsule,delayed release(/EC) active Take as directed April Holguin MULTIVITAMINS CAPS active Take as directed April Holguin ASPIRIN 81 MG ORAL TABLET active 1 tablet once a day April Holguin ZETIA 10 MG ORAL TABLET completed ONE TAB DAILY - Kim Giordano Ativan 0.5 mg tablet active Take as needed Carlos Manuel Nick MD ACTIVELLA 0.5-0.1 MG ORAL TABLET completed 4 times a week - Amanda Escalante CRESTOR 40 MG ORAL TABLET completed take one pill a day - Karen Randall SOCIAL HISTORY Date Observation Value Provider drug use none Carlos Manuel Green alcohol use, average drinks per day social Carlos Manuel Nick MD alcohol use yes Carlos Manuel Green passive cigarette sm sharri exposure no Carlos Manuel Nick MD smoking status Never smoker Carlos Manuel Nick MD social history E&M Marital Statu s: L matt with family/friends J ob Status: Retired Smoking History: P atient has never smoked. Carlos Manuel Nick MD social history reviewed E&M revi ewed - no changes required Carlos Manuel Nick MD smoking status Never smoker Peggy Carreon social history E&M Marital Statu s: L matt with family/friends J ob Status: Retired Smoking History: P atient has never smoked. Carlos Manuel Nick MD social history reviewed E&M revi ewed - no changes required Carlos Manuel Nick MD seatbelt usage 100 % Kim ayala caffeine use, averag e drinks per day yes Kim Pasquale passive cigarette sm sharri exposure no Kim Pasquale smoking status Never smoker Kim Brittmanuel ayala social history E&M Marital Statu s: L matt with family/friends J ob Status: Retired Smoking History: P atient has never smoked. Carlos Manuel Nick MD social history reviewed E&M revi ewed - no changes required Carlos Manuel Nick MD smoking status Never smoker Aprilmahin Holguin social history E&M Marital Statu s: L matt with family/friends J ob Status: Retired Smoking History: P atient has never smoked. Carlos Manuel Nick MD social history reviewed E&M revi ewed - no changes required Carlos Manuel Nick MD seatbelt usage 100 % Audelia dunn caffeine use, averag e drinks per day yes Audelia Whittington passive cigarette sm sharri exposure no Audelia Whittington smoking status Never smoker Audelia dunn social history E&M Marital Statu s: L matt with family/friends J ob Status: Retired Smoking History: P atient has never smoked. Carlos Manuel Nick MD social history reviewed E&M revi ewed - no changes required Carlos Manuel Nick MD seatbelt usage 100 % Amanda Escalante alcohol counseling no Amanda Elizabeth s alcohol use, average drinks per day social Amanda Ava alcohol use yes Amanda Ava caffeine use, averag e drinks per day yes Amanda Ava drug use none Amanda Ava passive cigarette sm sharri exposure no Amanda Ava smoking status Never smoker Amanda Ava smoking status Never smoker Carlos Manuel Nick MD social history reviewed E&M revi ewed - no changes required Carlos Manuel Nick MD social history reviewed E&M revi ewed - no changes required Carlos Manuel Nick MD seatbelt usage 100 % Kim ayala alcohol counseling no Kim Brittbethany west alcohol use, average drinks per day social Kim Giordano alcohol use yes Kim Nicolas millerer caffeine use, averag e drinks per day yes Kim Giordano drug use none Kim Brittprasad er passive cigarette sm sharri exposure no Kim Pasquale smoking status Never smoker Kim Brittmanuel ayala social history reviewed E&M revi ewed - no changes required Carlos Manuel Nick MD seatbelt usage 100 % Yuri Dennison alcohol counseling no Yuri Booth alcohol use, average drinks per day social Yuri Booth alcohol use yes Yuri dailey caffeine use, averag e drinks per day yes Yuri Booth drug use none Yuri dailey passive cigarette sm sharri exposure no Yuri Booth smoking status Never smoker Yuri Dennison social history reviewed E&M revi ewed - no changes required Carlos Manuel Nick MD social history reviewed E&M reviewed Carlos Manuel Nick MD seatbelt usage 100 % Carlos Manuel Nick MD alcohol counseling no Carlos Manuel ramos MD social history E&M Marital Statu s: Hugo gutierrez with family/friends J ob Status: Retired Carlos Manuel Nick MD caffeine use, averag e drinks per day yes Humberto Murray RN social history reviewed E&M reviewed Humberto Murray RN alcohol use, average drinks per day social Humberto Murray RN drug use none Carlos Manuel Green passive cigarette sm sharri exposure no Kim Giordano smoking status never smoker Kim ayala MENTAL STATUS Date Observation Value Provider assessment of judgme nt and insight E&M Alert and oriented to time, place and person. Mood and affect are normal. Carlos Manuel Nick MD assessment of judgme nt and insight E&M Alert and oriented to time, place and person. Mood and affect are normal. Humberto Murray RN FAMILY HISTORY Family Member Condition Father Family History of Co ronary Artery Disease: INSURANCE PROVIDERS Payer name Policy type / Coverage type [place] [employer] democr[employer] ID [employer] MEDICARE GOLD ADVANTAGE O Medicare [id number] ADVANCE DIRECTIVES Name Date DISCUSSED - NO DECISION MADE TREATMENT PLAN Date Name Performer [id number],B,Doing RPM Clarke Nick MD [id number],S, Carlos Manuel adamson MD [id number],B, Carlos Manuel adamson MD [id number],B, Carlos Manuel adamson MD [id number],S, Carlos Manuel adamson MD [id number],S, Carlos Manuel adamson MD [id number],C,Start remote patient monitoring Carlos Manuel Nick MD [id number],B, Carlos Manuel adamson MD [id number],B, Carlos Manuel adamson MD [id number],S, Carlos Manuel adamson MD [id number],S, Carlos Manuel adamson MD [id number],B, Carlos Manuel adamson MD Take your medication s every day as directed. Failing to take your medication properly can have a negative impact on your treatment. Please monitor your blood pressure and heart rate regularly, at least weekly. Sit quietly for 5 minutes before taking your blood pressure and heart rate. Recommend a healthy diet plan which would include lots of vegetables and fruits, poultry and fish, low fat dairy products. It would include lower quantities of carbohydrates, like breads, potatoes, rice and pasta. Only small amounts of sweets should be included. Recommend a low salt, or no added salt diet. Exercise of at least 3 times a week is recommended. Even small amounts of exercise regularly can be less intimidating but still beneficial. Please contact us if you have new Chest Pain, Shortness of Breath, Palpitations, Dizziness, or Edema. [facility] CarlosM anuel Nick MD Cardiology Carlos Manuel Nick MD Cardiology Carlos Manuel Nick MD Cardiology Carlos Manuel Nick MD Cardiology:Doing RPM Carlos Manuel perez MD Cardiology Carlos Manuel Nick MD Cardiology Carlos Manuel Nick MD Cardiology Carlos Manuel Nick MD Cardiology Carlos Manuel Nick MD Cardiology Carlos Manuel Nick MD Cardiology:Start remote patient monitoring Carlos Manuel Nick MD Cardiology Carlos Manuel Nick MD Cardiology Carlos Manuel Nick MD Cardiology Carlos Manuel Nick MD Cardiology Carlos Manuel Nick MD Cardiology Carlos Manuel Nick MD Cardiology follow up :Much better labs on Zetia and atorvastatin. Carlos Manuel Nick MD Cardiology follow up Carlos Manuel perez MD Cardiology follow up Carlos Manuel Ni perez MD Cardiology follow up Carlos Manuel perez MD Cardiology follow up Carlos Manuel perez MD Cardiology follow up Carlos Manuel Ni perez MD Cardiology Carlos Manuel Nick MD Cardiology Carlos Manuel Nick MD Cardiology Carlos Manuel Nick MD Cardiology Carlos Manuel Nick MD Cardiology Follow u p Carlos Manuel trejo MD Cardiology Follow u p:Will check BP at home and call results. If high at home, then will treat. Carlos Manuel Nick MD Cardiology Follow u p Carlos Manuel trejo MD Cardiology Follow u p Carlos Manuel trejo MD Cardiology Carlos Manuel Nick MD Cardiology Carlos Manuel Nick MD Cardiology Carlos Manuel Nick MD Cardiology Carlos Manuel Nick MD follow up: H er updated medication list for this problem includes: Aspirin 81 Mg Tabs (Aspirin) ..... One tab. daily Carlos Manuel Nick MD follow up Carlos Manuel Nick MD follow up Carlos Manuel Nick MD follow up Carlos Manuel Nick MD follow up: H er updated medication list for this problem includes: Aspirin 81 Mg Tabs (Aspirin) ..... One tab. daily BP today: 142/84 P rior BP: 134/90 (05/07/2013) Carlos Manuel Nick MD follow up: H er updated medication list for this problem includes: Aspirin 81 Mg Tabs (Aspirin) ..... One tab. daily BP today: 142/84 Prior BP: 134/90 (05/07/2013) N uclear Stress Findings: 1. Myocardial scintigraphy is normal without evidence for previous myocardial infarction or reversible ischemia. 2 . Normal left ventricular size and function with a calculated ejection fraction of 76%. 3 . Normal Mohamud protocol exercise tolerance test. - GC (05/14/2013) Carlos Manuel Nick MD follow up: H er updated medication list for this problem includes: Crestor 40 Mg Tabs (Rosuvastatin calcium) ..... Take one pill a day Zetia 10 Mg Tabs (Ezetimibe) ..... One tab daily BP today: 142/84 Prior BP: 134/90 (05/07/2013) Carlos Manuel Nick MD follow up: H er updated medication list for this problem includes: Aspirin 81 Mg Tabs (Aspirin) ..... One tab. daily BP today: 142/84 Prior BP: 134/90 (05/07/2013) N uclear Stress Findings: 1. Myocardial scintigraphy is normal without evidence for previous myocardial infarction or reversible ischemia. 2 . Normal left ventricular size and function with a calculated ejection fraction of 76%. 3 . Normal Mohamud protocol exercise tolerance test. - GC (05/14/2013) Carlos Manuel Nick MD New Patient: B P today: 134/90 Prior BP: / () Carlos Manuel Nick MD New Patient: B P today: 134/90 Prior BP: / () Carlos Manuel Nick MD New Patient: O rders: E KG (CPT-36600) S TR - Nuclear (23377) C omplete Echo (CPT-99788) Carlos Manuel Nick MD Date Name Stress Exercise Card iolite Complete Echo LIPID PANEL Full PFT Complete Echo STR - Nuclear HISTORY OF PROCEDURES Procedure Date Procedure Name Provider Procedure Notes S tatus EKG Carlos Manuel Nick MD complete d EKG Carlos Manuel Nick MD complete d EKG Carlos Manuel Nick MD complete d EKG Carlos Manuel Nick MD complete d Cardiolite, 2 units Carlos Manuel Nick MD completed SPECT Images Carlos Manuel Nick MD comple calvin Stress EKG Carlos Manuel Nick MD complete d EKG Carlos Manuel Nick MD complete d EKG Carlos Manuel Nick MD complete d EKG Carlos Manuel Nick MD complete d SNOMED-CT: [id number] Current Medications Documented Carlos Manuel Nick MD completed EKG Carlos Manuel Nick MD complete d SNOMED-CT: [id number] Current Medications Documented Carlos Manuel Nick MD completed DLCO - [id number] Carlos Manuel Nick MD comple calvin FRC - 07721 Carlos Manuel Nick MD complet ed FVC - 98766 Carlos Manuel Nick MD complet ed EKG Carlos Manuel Nick MD complete d
[2024-11-28 08:17] VITALS: BP 154/84; PULSE 66; RESP 15; TEMP 36.7; O2SAT 99
[2024-11-28] MEDS: LACTATED RINGERS 1,000 ML 30 ML IV CONT (08:22)
--- NOTE | 2024-11-28 08:43 | WPDANESEPPF ---
Anes - Initial Pre Proc Eval Procedure: Operation Date: 11/28/24 09:45 Proposed Procedures p Right Endoscopic Carpal Tunnel Release, Possible Open Carpal Tunnel Release - Erik Dean MD Date/Time: 11/28/24 08:43 Surgeon: Erik eDan MD Pre Op Diagnosis: Right Carpal Tunnel Syndrome Patient Data Age: 74 Gender: F Height: 1.52 m Weight: 70.8 kg Last Vital Signs Temp 36.7 C 11/28/24 08:17 Pulse 66 11/28/24 08:17 Resp 15 11/28/24 08:17 BP 154/84 H 11/28/24 08:17 Pulse Ox 99 11/28/24 08:17 O2 Del Method Room Air 11/28/24 08:17 Allergies Allergy/AdvReac Type Severity Reaction Status Date / Time No Known Allergies Allergy Unknown Verified 11/28/24 08:16 Home Medications Medication Instructions Recorded Confirmed Type aspirin 81 mg tablet,delayed 81 mg PO DAILY 11/30/23 11/28/24 History release (Adult Low Dose Aspirin) atorvastatin 80 mg tablet 80 mg PO DAILY 11/30/23 11/28/24 History ezetimibe 10 mg-rosuvastatin 10 mg 1 tablet PO DAILY 11/30/23 11/28/24 History tablet glucosamine-chondroitin 250 mg-200 2 tablet PO ONCE 11/30/23 11/28/24 History mg tablet (Osteo Bi-Flex) multivitamin (Daily Multi-Vitamin 1 tablet PO DAILY 11/30/23 11/28/24 History tablet) omega 3-wxz-umi-fish oil 60 mg-90 1 cap PO DAILY 11/30/23 11/28/24 History mg-500 mg capsule (Fish Oil) tramadol 50 mg tablet 50 mg PO Q6H PRN pain #12 tabs 11/28/24 Rx Patient hx anesthesia problems: none Family hx anesthesia problems: none Results Review: All pre-operative results and documents have been reviewed as part of the pre-operative evaluation. [facility] Past Medical History Medical History (Updated 11/28/24 @ 08:43 by Grzegorz Monreal MD) Overweight (BMI 25.0-29.9) HLD (hyperlipidemia) Social History Social History Smoking status: Never smoker Second hand tobacco smoke exposure: No Alcohol intake: current Substance use: never Substance use type: does not use Anes - Eval Final PreProcedure Day of Procedure 11/28/24 08:43 Patient weight: obese Heart: regular rate and rhythm Lungs: clear to auscultation Airway: Mallampati scale class II Neurological: alert and oriented Last oral intake: >/= 8 hours ASA classification: II Emergent: no Anesthetic plan: proceed Anesthesia type and monitoring: general GIVS and standard monitoring Results Review: All pre-operative results and documents have been reviewed as part of the pre-operative evaluation. Informed Consent: The patient's anesthetic plan and its attendant risks and benefits were discussed with the patient/family/POA. Questions were solicited and answers provided to the satisfaction of the patient/family/POA.
[2024-11-28] MEDS: ceFAZolin SODIUM 2 GM/20 ML SW SYRINGE IV PUSH (09:54)
[2024-11-28] MEDS: LIDOCAINE 1% LOCAL INJ 20 ML VIAL 5 ML INFILTRATE (09:54)
[2024-11-28 10:10] VITALS: BP 91/46; PULSE 52; RESP 15; O2SAT 99
[2024-11-28 10:20] VITALS: BP 90/72; PULSE 54; RESP 14; O2SAT 97
[2024-11-28 10:30] VITALS: BP 110/69; PULSE 56; RESP 14; O2SAT 96
[2024-11-28 10:40] VITALS: BP 123/64; PULSE 52; RESP 15; O2SAT 96
--- NOTE | 2024-11-28 11:04 | WPDANESPN ---
Anes - Prog Note Post-Op Date/Time: 11/28/24 11:04 Cardiovascular status: normal Respiratory status: normal Airway patency: baseline Mental status: baseline Post-Op hydration status: normal Vital Signs: Last Vital Signs Temp 36.7 C 11/28/24 08:17 Pulse 52 L 11/28/24 10:40 Resp 15 11/28/24 10:40 BP 123/64 11/28/24 10:40 Pulse Ox 96 11/28/24 10:40 O2 Del Method Room Air 11/28/24 10:40 Pain Score (VAS): 0/10 I/O: Intake & Output 11/27/24 11/28/24 11/28/24 23:59 07:59 15:59 Intake Total 750 Balance 750 Patient Feedback: Patient satisfied with anesthetic care.
== END 2024-11-28 10:55 | disposition home or self-care (01) ==
PROVIDERS: PCP Internal Medicine; Visit Provider Plastic Surgery
PROC: 01N54ZZ Release Median Nerve, Percutaneous Endoscopic Approach (ICD-10-PCS; CPT 29848; principal; 2024-11-28 09:45)
DX: G56.01 Carpal tunnel syndrome, right upper limb (principal)
CPT/HCPCS: 29848